=== PATIENT | male | born 2000 | race Caucasian/White ===

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

== ENCOUNTER 2024-05-29 20:49 | Emergency (ER) | payer MEDICAID ==
[~2024-05-29] VITALS: Ht 188 cm; Wt 68.2 kg
[2024-05-29] MEDS: LORazepam 1 MG tablet PO ONE (22:26)
[2024-05-29] MEDS: HYDROcodone/acetaminophen 10/325mg tab PO ONE (22:27)
[2024-05-29] MEDS: naproxen 500mg tablet PO ONE (22:27)
[2024-05-29 22:49] VITALS: BP 124/68; PULSE 87; RESP 14; TEMP 98.6; O2SAT 99
== END 2024-05-29 22:53 | disposition home or self-care (01) ==
LOC: ER 20:49
DX: N50.811 Right testicular pain (principal); F41.9 Anxiety disorder, unspecified; F12.90 Cannabis use, unspecified, uncomplicated; Z79.899 Other long term (current) drug therapy
CPT/HCPCS: 76870; 93976; 99284

== ENCOUNTER 2024-05-30 17:15 | Emergency (ER) | payer MEDICAID ==
[~2024-05-30] VITALS: Ht 188 cm; Wt 80.8 kg
[2024-05-30 18:00] VITALS: BP 122/62; PULSE 80; RESP 16; TEMP 97.8; O2SAT 97
== END 2024-05-30 18:01 | disposition home or self-care (01) ==
LOC: ER 17:15
DX: N50.811 Right testicular pain (principal); F41.9 Anxiety disorder, unspecified; F32.A Depression, unspecified; F12.90 Cannabis use, unspecified, uncomplicated; Z79.899 Other long term (current) drug therapy
CPT/HCPCS: 99282